=== PATIENT | male | born 1960 | race Caucasian/White ===

== ENCOUNTER 2023-09-13 12:24 | Emergency (ER) | payer OTHER, SELFPAY ==
[2023-09-13 12:25] VITALS: BP 149/91; PULSE 79; RESP 14; TEMP 36.3; O2SAT 100; BMI 38.4
--- NOTE | 2023-09-13 12:39 | VDUE_ITS ---
Reason For Study: LUE PAIN Left Proximal Left jugular vein is spontaneous, widely patent, phasic, with no intraluminal echogenicity noted. Left subclavian vein is spontaneous, widely patent, phasic, with no intraluminal echogenicity noted. Left Arm Left axillary vein is spontaneous, patent, phasic, competent, compressible and demonstrates augmentation. Left brachial vein is compressible. Left cephalic vein is compressible. Left basilic vein is compressible. Left Lower Arm Left radial vein is compressible. Left ulnar vein is compressible. Patient Safety Preliminary report to Dr. Cortes @ 13:35. VL/Venous Duplex US, Unilateral Interpretation Summary Deep veins of the left upper extremity are patent and compressible segmentally. There is no evidence of deep vein thrombosis. Superficial veins of the left upper extremity are patent and compressible segme ntally. There is no evidence of superficial vein thrombosis. Ordering Physician: Leti Cortes Performed By: Jerrica Epstein, KRISTIN, RVT ???
--- NOTE | 2023-09-13 12:40 | EDS_ITS ---
HPI History of Present Illness Chief Complaint: Upper Extremity Injury Detail of Chief Complaint: Pain and swelling to left arm Informant: patient Narrative Narrative: Patient presents emergency department complaint of pain and swelling to his left arm. Patient states that he fell about a week and a half ago landing on his elbow and injuring it. He had a scab to the area. Patient thought he was getting better. Yesterday started noticed increased redness and swelling to the medial aspect of the elbow. He denies any fevers or chills or sweats. He denies chest pain or shortness of breath. Patient [id number]. Patient has not seen anybody for the fall. [facility] Medical History (Updated 09/13/23 @ 13:[address] Leti Cortes, ) HTN (hypertension) Home Medications cephalexin 500 mg capsule 500 mg PO Q6 #40 CAPSULES 09/13/23 [Rx Last Taken Unknown] sulfamethoxazole 800 mg-trimethoprim 160 mg tablet 1 tab PO BID #20 TABLETS 09/13/23 [Rx Last Taken Unknown] Allergy/AdvReac Type Severity Reaction Status Date / Time celecoxib [From Celebrex] Allergy Intermediate Itching Verified 09/13/23 12:27 [id number] Allergy Intermediate Itching Verified 09/13/23 12:27 [From Skyrizi] Penicillins Allergy Mild Hives Verified 09/13/23 12:27 Surgical History (Updated 09/13/23 @ 12:59 by Agata Thornton) H/O sinus surgery Hx of cholecystectomy Knee joint replacement status Social History (Updated 09/13/23 @ 12:59 by Agata Thornton) household members: significant other housing: apartment current occupational status: employed Smoking Status: Current every day smoker tobacco type: cigarettes ROS ROS ED Review of Systems ROS Unobtainable: other Constitutional Constitutional ED: Reports lethargy; Denies chills, fever(s), sweats or weight loss Eyes Eyes: Denies blurry vision, change in vision or diplopia ENT ENT ED: Denies rhinorrhea or sore throat Cardiovascular Cardiovascular: Denies chest pain, orthopnea or racing heartbeat Respiratory/Chest Respiratory/Chest: Denies cough, dyspnea, dyspnea on exertion, orthopnea or sputum Gastrointestinal Gastrointestinal: Denies abdominal pain, diarrhea, nausea or vomiting Genitourinary Genitourinary ED: Denies dysuria, hematuria or urinary frequency Musculoskeletal Musculoskeletal: Reports other Details: Left elbow pain, redness, swelling ; Denies arthralgias, back pain, myalgias or neck pain Integumentary Denies abscess, Abrasions or rash Neurologic Neurologic: Denies headache(s) or weakness Psychiatric Psychiatric: Denies anxiety, depression or suicidal thoughts Endocrine Endocrinology: Denies polydipsia, polyphagia or polyuria Hematologic/Lymphatic Hematologic/Lymphatic: Denies easy bleeding, easy bruising or lymphadenopathy Allergic/Immunologic Allergic/Immunologic ED: Denies mouth swelling, tongue swelling or urticaria EXAM Physical Exam Const Vital Signs: 09/13/23 12:25 Temperature 97.3 F L Temperature Source Temporal Pulse Rate 79 Respiratory Rate 14 Blood Pressure 149/91 H Blood Pressure Mean 110 Pulse Ox 100 Oxygen Delivery Method Room Air Positive well nourished and well developed General Appearance ED: well developed and NAD HEENT Reports TM's clear and moist mucous membranes normocephalic and atraumatic; Negative for trauma or tenderness Tympanic Membrane ED: Yes TM's clear Eyes PERRL and EOMs intact bilaterally General Eye ED: Negative for pale conjunctiva or scleral icterus Neck no lymphadenopathy, supple and no JVD General: Negative for tenderness Chest Wall inspection of chest normal and palpation of chest normal Chest: Negative for tenderness Resp normal respiratory effort and clear to auscultation bilaterally Effort and Inspection: Negative for respiratory distress or pain with movement Auscultation: Negative for rhonchi, wheezes or diminished lung sounds Cardio regular rate, regular rhythm, S1 normal heart sound, S2 normal heart sound and no murmurs Peripheral Pulses: pulses 2+ throughout GI normal to inspection, nondistended, normoactive bowel sounds, soft to palpation, non-tender, non-distended and no masses Back/Spine no CVA tenderness and no thoracic nor lumbar tenderness Extremity normal to inspection Extremity Narrative: Left upper extremity-patient has diffuse erythema to the medial aspect of the left elbow extending onto the upper arm. Area warm to the touch. Patient has some pain with range of motion flexion extension at the elbow and some diffuse tenderness to the elbow diffusely. There is soft tissue swelling. He is n eurovascular intact distally. There is a healed scab to the olecranon of the elbow. General Extremety ED: Negative for edema General Extremity: Negative for edema Neuro oriented x3, CN's II-XII intact bilaterally, no sensory deficits noted and gait normal Sensorium / Orientation: awake, alert, oriented to person, oriented to place and oriented to time Motor Exam: strength 5/5 throughout and strength abnormal Psych mental status grossly normal Skin no rashes or lesions noted and no wounds MDM MDM MDM Narrative Medical decision making narrative: Presents to the ER with complaint of pain and swelling to the left elbow. He fell a week and a half ago. In the differential would be elbow fracture versus DVT versus infectious process. I will obtain an x-ray of the elbow as well as a venous Doppler of the left upper extremity. Will obtain some basic labs. I did outline the area of erythema with marker. Patient had x-rays of the left elbow that showed no fractures. There was soft tissue swelling noted. We did obtain a ultrasound of the left upper extremity and this was negative for DVT or fluid collection such as hematoma or abscess. CBC with differential obtained showed a normal white blood cell count of 9.5. Platelet count was 167. Chemistries unremarkable. This point I suspect likely cellulitic changes to the medial aspect of the elbow. I do not think he has a septic arthritis. Clinically he looks well. Will start on Keflex and Bactrim. Advised to follow-up with his primary care physician within 3 to 5 days. I did outline the area of erythema with marker and advised to return if he should have increased redness, swelling, worsening pain, fever, chills, or condition worsening weight. Lab Data Attestation: I reviewed the patient's lab results. Radiography Diagnostic Testing: Three-view x-rays of the left elbow obtained interpreted by myself as no evidence of fracture or dislocation. Radiology in agreement. Discharge Plan Triage Chief Complaint: Upper Extremity Injury ED Provider: Leti Cortes Dx/Rx/DC Orders Clinical Impression: Cellulitis of arm, left Instructions: ED Cellulitis Prescriptions: New sulfamethoxazole-trimethoprim [sulfamethoxazole-trimethoprim] 800-160 mg tablet 1 tab PO BID Qty: 20 0RF cephalexin [cephalexin] 500 mg capsule 500 mg PO Q6 Qty: 40 0RF Primary Care Provider: Dave Sharma Referrals: Dave Sharma DO [Primary Care Provider] - 3-5 Days Disposition Disposition: Home, Self Care Discharge Date/Time: 09/13/23 13:39
--- NOTE | 2023-09-13 12:45 | RAD_ITS ---
STUDY: X-RAY - LEFT ELBOW REASON FOR EXAM: Male, 63 years old. Fall, injury TECHNIQUE: 3 view(s) of the elbow. COMPARISON: None. FINDINGS: Normal visualized humerus, radius and ulna. Normal radiocapitellar and ulnotrochlear articulations. Soft tissue swelling. RAD/Elbow min 3 Views IMPRESSION: Diffuse soft tissue swelling. Electronically Signed: Leonard Santos MD at 13:09 EST ,
[2023-09-13 13:03] LABS: Hematocrit 45.1 % (40-54); Hemoglobin 15.9 g/dL (13.0-16.5); Mean Corp Hgb Conc 35.3 g/dL (32-36); Mean Corpuscular Hgb 32.4 pg (27.0-32.0); Mean Platelet Vol. 9.3 fl (6.2-12.0); Platelet Count 167 K/mm3 (150-450); RBC Distribution Width CV 12.6 % (11.6-14.6); RBC Distribution Width SD 42.4 fl (35.1-43.9); White Blood Count 9.5 K/mm3 (4.4-11.0)
[2023-09-13 13:22] LABS: Anion Gap 4 (5-15); BUN 19 mg/dL (7-18); BUN/Creat Ratio 22.1 RATIO (10-20); Calcium,Total 8.6 mg/dL (8.5-10.1); Chloride 108 mmol/L (98-107); Creatinine, Serum 0.86 mg/dL (0.70-1.30); EST Glomerular Filtration Rate 95 mL/min (>60); Est Glom Filt Rate - Afr Amer 115 mL/min (>60); Estimated Creatinine Clearance 81.13 ml/min; Glucose 109 mg/dL (74-106); Sodium Level 139 mmol/L (136-145)
[2023-09-13] MEDS: Cephalexin 250 MG Capsule 500 MG PO (13:30)
[2023-09-13] MEDS: Smz/Tmp Ds Tablet 1 TABLET PO (13:30)
[2023-09-13 13:38] VITALS: RESP 14
== END 2023-09-13 13:39 | disposition home or self-care (01) ==
PROVIDERS: Emergency Provider Emergency Medicine; PCP Internal Medicine; Visit Provider Emergency Medicine
DX: L03.114 Cellulitis of left upper limb (principal); I10 Essential (primary) hypertension; F17.210 Nicotine dependence, cigarettes, uncomplicated; W19.XXXA Unspecified fall, initial encounter; M79.602 Pain in left arm
CPT/HCPCS: 73080; 80048; 85027; 93971; 99284; A4216